=== PATIENT | male | born 1970 | race Caucasian/White ===

== ENCOUNTER 2018-09-15 18:37 | Outpatient (REF) | payer BC, SELFPAY ==
[2018-09-15 22:04] LABS: ALT 47 U/L (12-78); AST 20 U/L (15-37); Albumin 3.6 g/dL (3.4-5.0); Alkaline Phosphatase 88 U/L (46-116); Anion Gap 9.5 mmol/L (3-11); BUN 20 mg/dL (7-18); Bilirubin, Total 0.3 mg/dL (0.2-1.0); CO2 27.5 mmol/L (21.0-32.0); CREATININE 1.26 mg/dL (0.70-1.30); Calcium 9.3 mg/dL (8.5-10.1); Chloride 105 mmol/L (98-107); Cholesterol 117 mg/dL (50-200); Glucose 121 mg/dL (70-100); HDL Cholesterol 28 mg/dL (40-60); LDL CHOLESTEROL 55 mg/dL (<100); Potassium 4.1 mmol/L (3.5-5.1); Sodium 142 mmol/L (136-145); TSH (W/Ref FT4) 2.18 uIU/mL (0.358-3.74); Total Protein 7.1 g/dL (6.4-8.2); Triglyceride 333 mg/dL (30-150)
== END 2018-09-15 18:57 ==
LOC: NCHCN 18:37
PROVIDERS: PCP Family Medicine; Visit Provider Family Medicine
DX: I10 Essential (primary) hypertension (principal); Z82.49 Family history of ischemic heart disease and other diseases of the circulatory system
CPT/HCPCS: 80053; 80061; 83721; 84443

== ENCOUNTER 2019-07-05 21:54 | Outpatient (REF) | payer BC, SELFPAY ==
[2019-07-05 23:25] LABS: COMMENT (LAB VIEW ONLY) 122.04 mg/dL; Microalb ug/mg Crea 7.4 ug/mg Cr
== END 2019-07-05 22:14 ==
LOC: NCHCN 21:54
PROVIDERS: PCP Family Medicine; Visit Provider Nurse Practitioner Family
DX: R73.03 Prediabetes (principal)
CPT/HCPCS: 82043; 82570

== ENCOUNTER 2019-09-28 15:54 | Outpatient (REF) | payer BC, SELFPAY ==
[2019-09-28 21:42] LABS: Anion Gap 10.2 mmol/L (3-11); BUN 15 mg/dL (7-18); CO2 27.8 mmol/L (21.0-32.0); CREATININE 1.05 mg/dL (0.70-1.30); Calcium 9.2 mg/dL (8.5-10.1); Calculated LDL 52 mg/dL (<100); Chloride 102 mmol/L (98-107); Cholesterol 105 mg/dL (<200); Glucose 81 mg/dL (74-106); HDL Cholesterol 27 mg/dL (40-60); Potassium 3.9 mmol/L (3.5-5.1); Sodium 140 mmol/L (136-145); Triglyceride 133 mg/dL (<150)
== END 2019-09-28 16:14 ==
LOC: NCHCN 15:54
PROVIDERS: PCP Family Medicine; Visit Provider Nurse Practitioner Family
DX: R73.03 Prediabetes (principal); R73.9 Hyperglycemia, unspecified; I10 Essential (primary) hypertension
CPT/HCPCS: 80048; 80061

== ENCOUNTER 2020-10-10 18:34 | Outpatient (REF) | payer BC, SELFPAY ==
[2020-10-10 21:06] LABS: COMMENT (LAB VIEW ONLY) 99.25 mg/dL; Microalb ug/mg Crea 8.7 ug/mg Cr
[2020-10-10 21:25] LABS: Anion Gap 8.8 mmol/L (3-11); BUN 17 mg/dL (7-18); CO2 28.2 mmol/L (21.0-32.0); CREATININE 1.2 mg/dL (0.70-1.30); Calcium 9.8 mg/dL (8.5-10.1); Chloride 103 mmol/L (98-107); Glucose 87 mg/dL (74-106); Potassium 4.5 mmol/L (3.5-5.1); Sodium 140 mmol/L (136-145)
== END 2020-10-10 18:35 | disposition home or self-care (01) ==
LOC: NCHCN 18:34
PROVIDERS: PCP Nurse Practitioner Family; Visit Provider Nurse Practitioner Family
DX: I10 Essential (primary) hypertension (principal); R73.03 Prediabetes
CPT/HCPCS: 80048; 82043; 82570

== ENCOUNTER 2020-11-21 13:54 | Emergency (ER) | payer BC, SELFPAY ==
[2020-11-21 14:14] VITALS: BP 142/80; PULSE 105; RESP 22; TEMP 36.3; O2SAT 94
--- NOTE | 2020-11-21 14:15 | DI.US_ITS ---
Exam(s) US LOWER EXTREMITY VENOUS RT EXAM: US LOWER EXTREMITY VENOUS RT CLINICAL HISTORY: R leg pain, r/o dvt TECHNIQUE: Grayscale, color, and doppler imaging of the deep venous system of the right lower extrem ity was performed. COMPARISON: No exams were available for comparison FINDINGS: There is no evidence of intraluminal thrombus and there is normal compression and augmentation demons trated within the common femoral vein, femoral vein, and popliteal vein. In the ipsilateral calf the interrogated veins also exhibit normal compression/ augmentation properti es. The ipsilateral saphenofemoral junction is patent. IMPRESSION: 1. No evidence of DVT in the right lower extremity. DATA REPOSITORY:
--- NOTE | 2020-11-21 14:23 | ED.GENADUL_ITS ---
Discharge Plan Disposition Patient Disposition: HOME Condition: Stable Discharge Details Clinical Impression: Cellulitis of right leg Primary Care Provider: Bertha Dudley ED Provider: Andie Coles Home Meds and New Rx's Prescriptions: New cephalexin 500 mg capsule 500 mg PO QID 7 Days Qty: 28 RF: 0 Continued metformin 500 mg Tablet 500 mg PO DAILY RF: 0 atorvastatin 20 mg Tablet 20 mg PO QPM RF: 0 lisinopril-hydrochlorothiazide 20-12.5 mg Tablet 1 tab PO BID RF: 0 Discharge Instructions Instructions: Cellulitis (ED) Additional Instructions: Keep your right leg elevated as much as possible to help with swelling and improve blood flow. Your prescription has been sent electronically to your pharmacy. Call the pharmacy to make sure your prescription is ready before pickup. Take the prescription as directed. Follow-up with your primary care doctor in 1 week for reevaluation of your right leg redness and pain which I suspect is due to a superficial skin infection Return to the emergency department with any worsening or new concerning symptoms such as fever, worsening redness, pain or swelling. Discharge Data Discharge Physician: Andie Coles Medical Decision Making 50-year-old male with a history of diabetes, hypertension and obesity presents with right leg pain for the past week after falling through a wooden deck. Right anterior lower leg notes a 4 x 4 centimeter area of erythema, tenderness and area feels hot to touch. Appears likely more consistent with a developing cellulitis rather than concern for fracture. There is no bony deformity. He is neurovascularly intact. There is no abscess. There is no right calf tenderness. Considering patient's age and history, will obtain right tib-fib x-ray and right leg ultrasound. Right leg ultrasound the right tib-fib x-ray negative. Skin markings placed around edges of erythema. Patient was given a dose of Keflex here and prescription sent electronically to his pharmacy. Advised to follow up with the primary care doctor for re-evaluation. Usual and customary return precautions given prior to discharge. Medical Records Medical records reviewed: Yes I reviewed the patient's medical records. HPI General Mode of arrival: ambulatory . Date/Time Provider Initiated Documentation: 11/21/20 14:01 . Limitations to Documentation: no limitations . Information obtained by: patient . HPI Narrative: Patient is a 50-year-old male with a history of diabetes hypertension presents with right leg pain for the past week after fell through a wooden deck. He states he has had continued pain since then is concerned about possible fracture. He denies any known fever. He is complaining of pain only in his lower leg and denies any ankle, knee or hip pain Related Data Home Medications Medication Instructions Recorded Confirmed atorvastatin 20 mg PO QPM 11/21/20 11/21/20 cephalexin 500 mg PO QID 7 Days #28 cap 11/21/20 lisinopril-hydrochlorothiazide 1 tab PO BID 11/21/20 11/21/20 metformin 500 mg PO DAILY 11/21/20 11/21/20 Previous Rx's Medication Instructions Recorded cephalexin 500 mg PO QID 7 Days #28 cap 11/21/20 Allergies Allergy/AdvReac Type Severity Reaction Status Date / Time No Known Allergies Allergy Unverified 11/21/20 14:16 General Stated Complaint: Orthopedic PACHECO: 4 Review of Systems All systems reviewed & are unremarkable except as noted in HPI and below Constitutional Constitutional: Reports as per HPI, Denies chills and Denies fever(s) Eyes Eyes: Denies blurry vision ENT Ears, Nose, Mouth, and Throat: Denies dizziness, Denies sore throat and Denies t hroat swelling Cardiovascular Cardiovascular: Denies chest pain and Denies dyspnea Respiratory Respiratory: Denies cough and Denies dyspnea Gastrointestinal Gastrointestinal: Denies abdominal pain, Denies diarrhea and Denies vomiting Genitourinary Genitourinary: Denies hematuria and Denies dysuria Musculoskeletal Musculoskeletal: Denies back pain and Denies numbness Comments: Right leg pain Integumentary/Breasts Skin/Breast: Denies lesions and Denies rash Neurologic Neurologic: Denies dizziness, Denies localized weakness and Denies numbness Allergic/Immunologic Allergic/Immunologic: Denies throat swelling [facility] Medical History (Updated 11/21/20 @ 15:45 by Andie Coles DO) Diabetes HTN (hypertension) Social History Smoking/Tobacco Use Status: Never Smoking risk assessment performed?: Yes Alcohol Intake: never Drug use: Never Substance use type: does not use Do you feel safe at home: Yes Do you feel safe in your relationship?: Yes Exam Const General: cooperative, healthy appearing and no acute distress HENMT Head: normal to inspection Mouth: oral mucosae normal Eyes General: appearance normal, both eyes and all related structures Neck Neck: normal visual inspection Resp Effort & Inspection: normal respiratory effort and able to speak in complete sentences Cardio Rate: regular rate Skin General skin exam: no rashes or lesions noted Neuro General: patient alert, patient awake and patient oriented x3 Motor: muscle tone normal throughout Extrem Upper/lower leg/hip images: 1. Approximate 4 x 4 centimeter area of tender erythema noted to right anterior distal leg. There is no fluctuance, induration, crepitus, lesions, or ecchymosis. Other: Right DP/PT pulses intact. Right knee, ankle and foot normal to inspec tion without pain or tenderness. Psych Appearance: grossly normal Affect: normal affect Course Vital Signs Vital signs: Vital Signs Temperature 97.3 F L 11/21/20 14:14 Pulse 105 H 11/21/20 14:14 Respiratory Rate 11/21/20 14:14 Blood Pressure 142/80 H 11/21/20 14:14 Pulse Oximetry 94 11/21/20 14:14 Temperature 97.3 F L 11/21/20 14:14 Temperature Source Skin 11/21/20 14:14 Pulse 105 H 11/21/20 14:14 Respiratory Rate 22 11/21/20 14:14 Respiratory Effort Non-Labored 11/21/20 14:17 Blood Pressure 142/80 H 11/21/20 14:14 Blood Pressure Position Sitting 11/21/20 14:14 Pulse Oximetry 94 11/21/20 14:14 Oxygen Delivery Method Room Air 11/21/20 14:14 Oxygen Flow Rate 0 11/21/20 14:14 Pain Level 1 11/21/20 14:14
--- NOTE | 2020-11-21 14:44 | DI.RAD_ITS ---
Exam(s) XR TIB/FIB RT EXAM: XR TIB/FIB RT CLINICAL HISTORY: s/p fall through deck, r/o fx. TECHNIQUE: 2D digital imaging was performed. COMPARISON: No exams were available for comparison FINDINGS: There is no evidence of acute fracture nor dislocation. No radiopaque foreign body. No osseous lesi ons. IMPRESSION: No fracture evident. DATA REPOSITORY: RADIATION DOSE DELIVERED:
[2020-11-21] MEDS: Cephalexin 500 MG CAP PO (15:48)
== END 2020-11-21 15:53 | disposition home or self-care (01) ==
PROVIDERS: Emergency Provider Physician Assistant; PCP Nurse Practitioner Family
DX: L03.115 Cellulitis of right lower limb (principal); L53.8 Other specified erythematous conditions; W13.3XXA Fall through floor, initial encounter
CPT/HCPCS: 99284; 73590; 93971; 99285

== ENCOUNTER 2021-11-06 14:50 | Outpatient (REF) | payer OTHER, SELFPAY ==
[2021-11-06 18:06] LABS: Anion Gap 8.1 mmol/L (3-11); BUN 15 mg/dL (7-18); CO2 29.9 mmol/L (21.0-32.0); CREATININE 1.1 mg/dL (0.70-1.30); Calcium 9.5 mg/dL (8.5-10.1); Chloride 101 mmol/L (98-107); Glucose 120 mg/dL (74-106); Sodium 139 mmol/L (136-145)
[2021-11-06 18:10] LABS: Hemoglobin A1C 6.4 % (<5.7)
[2021-11-06 19:55] LABS: COMMENT (LAB VIEW ONLY) 50.55 mg/dL; Microalb ug/mg Crea 17.6 ug/mg Cr
== END 2021-11-06 14:51 | disposition home or self-care (01) ==
LOC: NCHCN 14:50
PROVIDERS: PCP Nurse Practitioner Family; Visit Provider Nurse Practitioner Family
DX: R73.03 Prediabetes (principal); I10 Essential (primary) hypertension; E66.9 Obesity, unspecified; Z68.41 Body mass index [BMI] 40.0-44.9, adult
CPT/HCPCS: 80048; 82043; 82570; 83036

== ENCOUNTER 2022-09-17 11:00 | Outpatient (REF) | payer BC, SELFPAY ==
[2022-09-17 14:54] LABS: COMMENT (LAB VIEW ONLY) 59.65 mg/dL; Microalb ug/mg Crea 5.2 ug/mg Cr
[2022-09-17 14:55] LABS: Anion Gap 10.3 mmol/L (3-11); BUN 25 mg/dL (7-18); CO2 26.7 mmol/L (21.0-32.0); CREATININE 1.1 mg/dL (0.70-1.30); Calcium 9.8 mg/dL (8.5-10.1); Calculated LDL 33 mg/dL (<100); Chloride 103 mmol/L (98-107); Cholesterol 90 mg/dL (<200); Estimated GFR 82.29 (mL/min/1.73m2); Glucose 98 mg/dL (74-106); HDL Cholesterol 32 mg/dL (40-60); Potassium 4.2 mmol/L (3.5-5.1); Sodium 140 mmol/L (136-145); Triglyceride 126 mg/dL (<150)
== END 2022-09-17 11:01 | disposition home or self-care (01) ==
LOC: NCHCN 11:00
PROVIDERS: PCP Nurse Practitioner Family; Visit Provider Nurse Practitioner Family
DX: E11.9 Type 2 diabetes mellitus without complications (principal); E78.5 Hyperlipidemia, unspecified
CPT/HCPCS: 80048; 80061; 82043; 82570

== ENCOUNTER 2023-08-12 10:36 | Outpatient (REF) | payer BC, SELFPAY ==
[2023-08-12 14:32] LABS: Hemoglobin A1C 5.6 % (<5.7)
[2023-08-12 14:34] LABS: Anion Gap 6.2 mmol/L (3-11); BUN 26 mg/dL (7-18); CO2 28.8 mmol/L (21.0-32.0); Calcium 9.5 mg/dL (8.5-10.1); Calculated LDL 64 mg/dL (<100); Chloride 104 mmol/L (98-107); Cholesterol 122 mg/dL (<200); Estimated GFR 91.69 (mL/min/1.73m2); Glucose 93 mg/dL (74-106); HDL Cholesterol 41 mg/dL (40-60); Potassium 4.1 mmol/L (3.5-5.1); Sodium 139 mmol/L (136-145); Triglyceride 89 mg/dL (<150)
== END 2023-08-12 10:37 | disposition home or self-care (01) ==
LOC: NCHCN 10:36
PROVIDERS: PCP Nurse Practitioner Family; Visit Provider Nurse Practitioner Family
DX: E11.9 Type 2 diabetes mellitus without complications (principal); E78.5 Hyperlipidemia, unspecified
CPT/HCPCS: 80048; 80061; 83036

== ENCOUNTER 2023-08-19 10:14 | Outpatient (REF) | payer BC, SELFPAY ==
[2023-08-19 16:16] LABS: COMMENT (LAB VIEW ONLY) 126.04 mg/dL; Microalb ug/mg Crea 7.8 ug/mg Cr
== END 2023-08-19 10:15 | disposition home or self-care (01) ==
LOC: NCHCN 10:14
PROVIDERS: PCP Nurse Practitioner Family; Visit Provider Nurse Practitioner Family
DX: E11.9 Type 2 diabetes mellitus without complications (principal)
CPT/HCPCS: 82043; 82570

== ENCOUNTER 2024-06-15 13:06 | Outpatient (REF) | payer BC, SELFPAY ==
[2024-06-15 15:02] LABS: HCT 44.3 % (40.0-50.0); HGB 15.1 g/dL (13.5-17.5); MCH 30.5 pg (27.0-33.0); MCHC 34.1 % (32.0-36.0); MCV 90 fL (80-95); Platelet Count 244 10^3/uL (130-400); RBC 4.95 10^6/uL (4.36-5.78); RDW 12.3 % (11.8-14.1); RDW-SD 40.1 fL; WBC 6.54 10^3/uL (4.4-10.8)
[2024-06-15 15:41] LABS: ALT 40 U/L (16-63); AST 21 U/L (15-37); Albumin 3.9 g/dL (3.4-5.0); Alkaline Phosphatase 96 U/L (46-116); Anion Gap 8.8 mmol/L (3-11); BUN 18 mg/dL (7-18); Bilirubin, Total 0.58 mg/dL (0.2-1.0); CO2 28.2 mmol/L (21.0-32.0); CREATININE 1.1 mg/dL (0.70-1.30); Calcium 9.1 mg/dL (8.5-10.1); Calculated LDL 98 mg/dL (<100); Chloride 105 mmol/L (98-107); Cholesterol 181 mg/dL (<200); Estimated GFR 81.28 (mL/min/1.73m2); Glucose 85 mg/dL (74-106); HDL Cholesterol 41 mg/dL (40-60); Potassium 3.9 mmol/L (3.5-5.1); Sodium 142 mmol/L (136-145); Total Protein 7.6 g/dL (6.4-8.2); Triglyceride 214 mg/dL (<150); Vitamin B12 537 pg/mL (193-986)
[2024-06-15 16:17] LABS: COMMENT (LAB VIEW ONLY) 49.67 mg/dL; Microalb ug/mg Crea 16.7 ug/mg Cr
== END 2024-06-15 13:07 | disposition home or self-care (01) ==
LOC: NCHCN 13:06
PROVIDERS: PCP Nurse Practitioner Family; Visit Provider Nurse Practitioner Family
DX: E11.9 Type 2 diabetes mellitus without complications (principal); Z51.81 Encounter for therapeutic drug level monitoring
CPT/HCPCS: 80053; 80061; 85027; 82043; 82570; 82607

== ENCOUNTER 2025-01-30 15:42 | Outpatient (REF) | payer BC, SELFPAY ==
[2025-01-30 16:40] LABS: Anion Gap 8.4 mmol/L (3-11); BUN 21 mg/dL (7-18); CO2 26.6 mmol/L (21.0-32.0); Calcium 9.5 mg/dL (8.5-10.1); Chloride 103 mmol/L (98-107); Estimated GFR 90.56 (mL/min/1.73m2); Glucose 103 mg/dL (74-106); Potassium 4.0 mmol/L (3.5-5.1); Sodium 138 mmol/L (136-145)
== END 2025-01-30 15:43 | disposition home or self-care (01) ==
LOC: NCHCN 15:42
PROVIDERS: PCP Nurse Practitioner Family; Visit Provider Nurse Practitioner Family
DX: I10 Essential (primary) hypertension (principal)
CPT/HCPCS: 80048

== ENCOUNTER 2025-02-21 14:09 | Outpatient (REF) | payer BC, SELFPAY ==
[2025-02-21 20:53] LABS: Abs Immature Grans 0.05 10^3/uL (0.0-0.06); HCT 44.1 % (40.0-50.0); HGB 15.2 g/dL (13.5-17.5); Immature Grans % 0.4 %; MCH 30.6 pg (27.0-33.0); MCHC 34.5 % (32.0-36.0); MCV 89 fL (80-95); MPV 10.4 fL (8.0-11.0); Platelet Count 248 10^3/uL (130-400); RBC 4.96 10^6/uL (4.36-5.78); RDW 12.5 % (11.8-14.1); RDW-SD 41.0 fL; WBC 12.06 10^3/uL (4.4-10.8)
[2025-02-21 21:19] LABS: ALT 36 U/L (16-63); AST 27 U/L (15-37); Albumin 4.2 g/dL (3.4-5.0); Alkaline Phosphatase 110 U/L (46-116); Anion Gap 9.7 mmol/L (3-11); BUN 25 mg/dL (7-18); Bilirubin, Total 0.7 mg/dL (0.2-1.0); C-Reactive Protein 5.12 mg/dL (<or=0.5); CO2 29.3 mmol/L (21.0-32.0); Calcium 9.5 mg/dL (8.5-10.1); Chloride 99 mmol/L (98-107); Estimated GFR 80.77 (mL/min/1.73m2); Glucose 81 mg/dL (74-106); Potassium 3.9 mmol/L (3.5-5.1); Sodium 138 mmol/L (136-145); Total Protein 8.1 g/dL (6.4-8.2)
== END 2025-02-21 14:10 | disposition home or self-care (01) ==
LOC: NCHCN 14:09
PROVIDERS: PCP Nurse Practitioner Family; Visit Provider Internal Medicine
DX: R10.32 Left lower quadrant pain (principal)
CPT/HCPCS: 80053; 85025; 86140

== ENCOUNTER 2025-04-26 10:34 | Day surgery (SDC) | payer BC, SELFPAY ==
[2025-04-26 11:06] VITALS: BP 140/86; PULSE 74; RESP 16; TEMP 36.3; O2SAT 97
[2025-04-26] MEDS: Lactated Ringers 1,000 ML 80 ML IV (11:22)
--- NOTE | 2025-04-26 11:30 | W.ANESPRE ---
General Info Date of Service Date Performed: 04/26/25 Height: 5 ft 11 in Weight: 131.7 kg Body Mass Index (BMI): 40.4 Surgical Procedure: Operation Date: 04/26/25 12:05 Proposed Procedure Side Surgeon tracy Stern MD Meds Allergies and Home Medications Allergies Allergy/AdvReac Type Severity Reaction Status Date / Time No Known Allergies Allergy Verified 04/26/25 11:03 Home Medication ?Medication ?Instructions ?Recorded atorvastatin 20 mg tablet 20 mg PO QPM 11/21/20 lisinopril 20 1 tab PO BID 11/21/20 mg-hydrochlorothiazide 12.5 mg tablet fluticasone propionate 50 2 spray intranasal DAILY 02/26/25 mcg/actuation nasal spray,suspension liraglutide 0.6 mg/0.1 mL (18 mg/3 1.8 mg subcut DAILY 02/26/25 mL) subcutaneous pen injector ([employer] 2-Micheal) bisacodyl 5 mg tablet,delayed 5 mg PO ONCE #4 tabs 03/16/25 release (Dulcolax (bisacodyl)) metformin 500 mg tablet 500 mg PO BID 03/16/25 polyethylene glycol 3350 17 17 g PO ONCE #238 grams 03/16/25 gram/dose oral powder Current Visit Medications: Current Medications Generic Name Dose Route Start Last Admin Trade Name Freq PRN Reason Stop Dose Admin Ringer's Solution 1,000 mls @ 80 mls/hr 04/26/25 06:00 04/26/25 11:22 IV 04/26/25 23:59 80 mls/hr INFUSION GABRIEL Administration IV Miscellaneous Supplies 1 each 04/26/25 06:00 Iv Access IV 04/26/25 23:59 DIRECTED GABRIEL Sodium Biphosphate/Sodium Phosphate 133 - 266 ml 04/26/25 06:00 Na Phosphate Enema-Adult 133 Ml Btl [place] 04/26/25 23:59 DIRECTED PRN Sodium Chloride 0 ml 04/26/25 06:00 Normal Saline Flush 10 Ml Syr IV 04/26/25 23:59 PRN PRN Sodium Chloride 0 ml 04/26/25 06:00 Normal Saline 10 Ml Vial IJ 04/26/25 23:59 DIRECTED PRN Sterile Water 0 ml 04/26/25 06:00 Water,Injection,Sterile 10 Ml Vial IJ 04/26/25 23:59 DIRECTED PRN PFS Active Problems Active Problems: Problem Status Onset Code Diverticulitis Chronic K57.92 RAPHAEL (obstructive sleep apnea) Chronic G47.33 Cellulitis of right leg Acute L03.115 Medical History Medical History Gout HTN (hypertension) Diabetes Surgical History Surgical History Hx of wisdom tooth extraction Tobacco Smoking/Tobacco Use Status: Former Tobacco Use Passive smoking exposure: No Alcohol Alcohol Intake: never Substance Use Substance use: Never Substance use type: does not use Vital Signs and Lab Results Vital Signs Most Recent Vital Signs in EMR: Most Recent Vital Signs Temp Pulse Resp BP Pulse Ox 36.3 C L 74 16 140/86 97 04/26/25 11:06 04/26/25 11:06 04/26/25 11:06 04/26/25 11:06 04/26/25 11:06 Point of Care Results Point of Care Results: Finger Stick Blood Glucose 96 04/26/25 10:52 Anesthesia Assessment and Plan Anesthesia History Personal History: No History of Anesthesia Complications Family History: No Family History of Anesthesia Complications Implantable Cardiac Device Does patient have a Pacemaker or an ICD?: No
--- NOTE | 2025-04-26 11:41 | W.ANESPRE ---
General Info Date of Service Date Performed: 04/26/25 Height: 5 ft 11 in Weight: 131.7 kg Body Mass Index (BMI): 40.4 Surgical Procedure: Operation Date: 04/26/25 12:05 Proposed Procedure Side Surgeon tracy Stern MD Meds Allergies and Home Medications Allergies Allergy/AdvReac Type Severity Reaction Status Date / Time No Known Allergies Allergy Verified 04/26/25 11:03 Home Medication ?Medication ?Instructions ?Recorded atorvastatin 20 mg tablet 20 mg PO QPM 11/21/20 lisinopril 20 1 tab PO BID 11/21/20 mg-hydrochlorothiazide 12.5 mg tablet fluticasone propionate 50 2 spray intranasal DAILY 02/26/25 mcg/actuation nasal spray,suspension liraglutide 0.6 mg/0.1 mL (18 mg/3 1.8 mg subcut DAILY 02/26/25 mL) subcutaneous pen injector ([employer] 2-Micheal) bisacodyl 5 mg tablet,delayed 5 mg PO ONCE #4 tabs 03/16/25 release (Dulcolax (bisacodyl)) metformin 500 mg tablet 500 mg PO BID 03/16/25 polyethylene glycol 3350 17 17 g PO ONCE #238 grams 03/16/25 gram/dose oral powder Current Visit Medications: Current Medications Generic Name Dose Route Start Last Admin Trade Name Freq PRN Reason Stop Dose Admin Ringer's Solution 1,000 mls @ 80 mls/hr 04/26/25 06:00 04/26/25 11:22 IV 04/26/25 23:59 80 mls/hr INFUSION GABRIEL Administration IV Miscellaneous Supplies 1 each 04/26/25 06:00 Iv Access IV 04/26/25 23:59 DIRECTED GABRIEL Sodium Biphosphate/Sodium Phosphate 133 - 266 ml 04/26/25 06:00 Na Phosphate Enema-Adult 133 Ml Btl [place] 04/26/25 23:59 DIRECTED PRN Sodium Chloride 0 ml 04/26/25 06:00 Normal Saline Flush 10 Ml Syr IV 04/26/25 23:59 PRN PRN Sodium Chloride 0 ml 04/26/25 06:00 Normal Saline 10 Ml Vial IJ 04/26/25 23:59 DIRECTED PRN Sterile Water 0 ml 04/26/25 06:00 Water,Injection,Sterile 10 Ml Vial IJ 04/26/25 23:59 DIRECTED PRN PFS Active Problems Active Problems: Problem Status Onset Code Diverticulitis Chronic K57.92 RAPHAEL (obstructive sleep apnea) Chronic G47.33 Cellulitis of right leg Acute L03.115 Medical History Medical History (Updated 04/26/25 @ 11:43 by Rosi Stern MD) Gout HTN (hypertension) Diabetes Surgical History Surgical History Hx of wisdom tooth extraction Tobacco Smoking/Tobacco Use Status: Never Passive smoking exposure: No Alcohol Alcohol Intake: never Substance Use Substance use: Never Substance use type: does not use Vital Signs and Lab Results Vital Signs Most Recent Vital Signs in EMR: Most Recent Vital Signs Temp Pulse Resp BP Pulse Ox 36.3 C L 74 16 140/86 97 04/26/25 11:06 04/26/25 11:06 04/26/25 11:06 04/26/25 11:06 04/26/25 11:06 Point of Care Results Point of Care Results: Finger Stick Blood Glucose 96 04/26/25 10:52 Anesthesia Assessment and Plan Anesthesia History Personal History: No History of Anesthesia Complications Family History: No Family History of Anesthesia Complications Exercise Tolerance Exercise Tolerance: Metabolic Equivalents>4 Pertinent Negatives Pertinent Negatives: No Symptoms of GERD, No Major Cardiovascular Symptoms or Complaints and No Major Pulmonary Symptoms or Complaints Cardiac & Pulmonary Exam Cardiac Exam: Normal S1/S2 Heart Sounds Pulmonary Exam: Clear Bilateral Breath Sounds Implantable Cardiac Device Does patient have a Pacemaker or an ICD?: No Airway Exam Known Difficult Airway: No Mallampati Class: 1 Mouth Opening: Normal (> 3cm) Thyromental Distance: Greater than 3 cm Facial Hair: Full Kim Neck Range of Motion: Full ROM Neck Circumference: Normal Teeth Condition: Normal Dentition ASA Classification ASA Score: ASA 2 Emergency Case?: No NPO Status NPO Status: NPO Clears >2 hours, Solids >8 hours Anesthesia Plan Resuscitation Status: Full Code Anesthesia Technique: General Anesthesia Airway Planned: Natural Airway Monitors Used: Standard Monitors Preoperative Comments:: Last Victoza dose Wednesday
--- NOTE | 2025-04-26 11:42 | W.PM.HP.N ---
Date of service: 04/26/25 Time of Service: 11:42 Assessment and Plan Assessment and plan (1) History of diverticulitis: Status: Acute Assessment and plan: Recent history of diverticulitis. Colonoscopy is indicated to assess the area and ensure there are no changes beyond diverticular changes. The procedure was discussed at length with the patient and the risks benefits alternatives and expectations were reviewed. The informed consent was obtained at the office visit and he has no questions today. Proceed with colonoscopy History of Present Illness Narrative: 54 year-old male who presents for colonoscopy due to recent history of diverticulitis. This was his first flare of diverticulitis. He had a self-limited episode that resolved without antibiotics but was demonstrated on CAT scan. He had not had colonoscopy. He has not had any flareups or incidents since he was last seen in the office on March 16. His colonoscopy prep went well and he is prepared for the procedure. PFSH All Active Problems (Updated 04/26/25 @ 11:43 by Rosi Stern MD) History of diverticulitis (Acute) Diverticulitis (Chronic) RAPHAEL (obstructive sleep apnea) (Chronic) Cellulitis of right leg (Acute) Medical History Gout HTN (hypertension) Diabetes Surgical History Hx of wisdom tooth extraction Social History Smoking/Tobacco Use Status: Never Smoking risk assessment performed?: Yes Alcohol Intake: never Drug use: Never Substance use type: does not use Housing: house Do you feel safe at home: Yes Do you feel safe in your relationship?: Yes Additional Social history: [facility] Meds Allergies and Home Medications Allergies Allergy/AdvReac Type Severity Reaction Status Date / Time No Known Allergies Allergy Verified 04/26/25 11:03 Home Medications ?Medication ?Instructions ?Recorded ?Confirmed ?Type atorvastatin 20 mg tablet 20 mg PO QPM 11/21/20 04/26/25 History lisinopril 20 1 tab PO BID 11/21/20 04/26/25 History mg-hydrochlorothiazide 12.5 mg tablet fluticasone propionate 50 2 spray intranasal DAILY 02/26/25 04/26/25 History mcg/actuation nasal spray,suspension liraglutide 0.6 mg/0.1 mL (18 mg/3 1.8 mg subcut DAILY 02/26/25 04/26/25 History mL) subcutaneous pen injector (Victoza 2-Micheal) bisacodyl 5 mg tablet,delayed 5 mg PO ONCE #4 tabs 03/16/25 04/26/25 Rx release (Dulcolax (bisacodyl)) metformin 500 mg tablet 500 mg PO BID 03/16/25 04/26/25 History polyethylene glycol 3350 17 17 g PO ONCE #238 grams 03/16/25 04/26/25 Rx gram/dose oral powder Exam Narrative Exam Narrative: awake, NAD eomi, MMM midline trachea, neck is symmetric PULM: normal resp effort, equal chest rise with respiration, no wheezing audible CARDIAC: normal PMI, no jvd, regular rate, normal perfusion abdomen is nondistended. extremities are without deformity, normal movement of all four extremities speech is clear and coherent mood and affect are congruent, no focal neurological deficits skin without rash Results Last Vital Signs Temp 97.3 F L 04/26/25 11:06 Pulse 74 04/26/25 11:06 Resp 16 04/26/25 11:06 BP 140/86 04/26/25 11:06 Pulse Ox 97 04/26/25 11:06 Time Spent Time spent with Patient: <40 minutes Time was spent: preparing to see the patient(eg.review tests) and counseling the patient
[2025-04-26 11:43] VITALS: BMI 40.4
--- NOTE | 2025-04-26 11:44 | W.PM.DSUDISC ---
Date of service: 04/26/25 Discharge Plan Disposition Patient Disposition: Home Condition: Stable Discharge Details Attending Provider: Rosi Stern Primary Care Provider: Bertha Dudley Home Meds and New Rx's Prescriptions: Continued fluticasone propionate 50 mcg/actuation spray,suspension 2 spray intranasal DAILY Rx Instructions: administer into each nostril liraglutide [Victoza 2-Micheal] 0.6 mg/0.1 mL (18 mg/3 mL) pen injector 1.8 mg subcut DAILY atorvastatin 20 mg Tablet 20 mg PO QPM lisinopril-hydrochlorothiazide 20-12.5 mg Tablet 1 tab PO BID metformin 500 mg tablet 500 mg PO BID Discontinued bisacodyl [Dulcolax (bisacodyl)] 5 mg tablet,delayed release (DR/EC) 5 mg PO ONCE Qty: 4 0RF Rx Instructions: Take per colonoscopy instructions provided by ordering providers office polyethylene glycol 3350 17 gram/dose powder 17 g PO ONCE Qty: 238 0RF Rx Instructions: Take per colonoscopy instructions provided by ordering providers office Discharge Instructions Additional Instructions: Colonoscopy today shows a healthy colon and rectum. No polyps or growths, no inflammatory conditions or disease. You have diverticulosis where we expected to see it. Diverticulosis of the sigmoid colon noted, no diverticulitis (infection) present. Take a daily fiber supplement and eat a high fiber diet to prevent problems and progression of diverticulosis. Stand Alone Forms: Anesthesia Discharge Inst., Colonoscopy Post Instructions, Joy Dean (DSU) Activity:: Activity as Tolerated Diet:: As Tolerated DS: Diagnosis Discharge Diagnosis (1) History of diverticulitis: Status: Acute (2) Diverticulosis of sigmoid colon: Status: Acute
--- NOTE | 2025-04-26 11:46 | COLE_ITS ---
Date of service: 04/26/25 Time of Service: 12:11 Colonoscopy Report Pre-op diagnosis general: History of diverticulitis Post-op diagnosis procedure note: same (Diverticulosis of sigmoid colon) Procedure: Colonoscopy Surgeon: Rosi Stern Anesthesia Type: General:No Airway Estimated blood loss (mL): 0 Pathology: none sent Complications: None Prep: Miralax/Dulcolax (good) Procedure Description: Informed consent was obtained and the patient was taken to the procedure area. The patient was placed in left lateral decubitus position on the procedure table. Timeout was performed. Anesthesia was induced. A lubricated colonoscope was inserted through the anus and passed to the cecum. The cecum was identified by the ileocecal valve and the appendiceal orifice. The scope was then slowly withdrawn and the colonic and rectal mucosa examined.The scope was retroflexed in the anorectal junction examined. No mass lesion, poyp, inflammatory change, or AVM seen. Sigmoid diverticulosis noted, small and large mouthed, moderate in degreee. No e vidence of diverticulitis. Grade 2 internal hemorrhoids without complication. Assessment and plan: History of diverticulitis Diverticulosis of sigmoid colon Normal colonoscopy other than the diverticulosis. Average risk patient. Next screening colonoscopy will be due in 10 years. High fiber diet and/or daily powdered fiber supplement recommended for diverticulosis.
--- NOTE | 2025-04-26 12:12 | W.PM.DSUDISC ---
Date of service: 04/26/25 Discharge Plan Disposition Patient Disposition: Home Condition: Stable Discharge Details Attending Provider: Rosi Stern Primary Care Provider: Bertha Dudley Home Meds and New Rx's Prescriptions: Continued fluticasone propionate 50 mcg/actuation spray,suspension 2 spray intranasal DAILY Rx Instructions: administer into each nostril liraglutide [Victoza 2-Micheal] 0.6 mg/0.1 mL (18 mg/3 mL) pen injector 1.8 mg subcut DAILY atorvastatin 20 mg Tablet 20 mg PO QPM lisinopril-hydrochlorothiazide 20-12.5 mg Tablet 1 tab PO BID metformin 500 mg tablet 500 mg PO BID Discontinued bisacodyl [Dulcolax (bisacodyl)] 5 mg tablet,delayed release (DR/EC) 5 mg PO ONCE Qty: 4 0RF Rx Instructions: Take per colonoscopy instructions provided by ordering providers office polyethylene glycol 3350 17 gram/dose powder 17 g PO ONCE Qty: 238 0RF Rx Instructions: Take per colonoscopy instructions provided by ordering providers office Discharge Instructions Additional Instructions: Colonoscopy today shows a healthy colon and rectum. No polyps or growths, no inflammatory conditions or disease. You have diverticulosis where we expected to see it. Diverticulosis of the sigmoid colon noted, no diverticulitis (infection) present. Take a daily fiber supplement and eat a high fiber diet to prevent problems and progression of diverticulosis. Your next colonoscopy will be due in 10 years as a screening exam Stand Alone Forms: Anesthesia Discharge Inst., Colonoscopy Post Instructions, Joy Dean (DSU) Activity:: Activity as Tolerated Diet:: As Tolerated DS: Diagnosis Discharge Diagnosis (1) History of diverticulitis: Status: Acute (2) Diverticulosis of sigmoid colon: Status: Acute
[2025-04-26 12:17] VITALS: BP 123/79; PULSE 85; RESP 18; TEMP 36.1; O2SAT 92
--- NOTE | 2025-04-26 12:27 | W.ANESPOSTOP ---
Postoperative Evaluation Date, Time and Location Date Performed: 04/26/25 Time Performed: 12:27 Patient Location: Day Surgery Unit Vital Signs Most Recent Imported Vital Signs: Most Recent Vital Signs Temp Pulse Resp BP Pulse Ox 36.1 C L 85 18 123/79 92 04/26/25 12:17 04/26/25 12:17 04/26/25 12:17 04/26/25 12:17 04/26/25 12:17 Pain Score Most Recent Pain Score: Most Recent Pain Score Pain Level 0 04/26/25 12:17 Assessment Mental Status: Awake (Alert & Oriented to Patient Baseline) Airway and Respiratory Function: Patent airway with normal (patient baseline) respiratory exam Cardiovascular Function: Hemodynamically Stable Hydration Status: Adequately Hydrated Nausea & Vomiting: No Nausea or Vomiting Pain: Pt. Denies Any Pain Peripheral Nerve Block: Patient did not receive a nerve block
[2025-04-26 12:52] VITALS: BP 123/86; PULSE 76; RESP 14; TEMP 36.3; O2SAT 95
== END 2025-04-26 13:11 | disposition home or self-care (01) ==
LOC: SUR 10:35
PROVIDERS: PCP Nurse Practitioner Family; Visit Provider Surgery
PROC: 0DJD8ZZ Inspection of Lower Intestinal Tract, Via Natural or Artificial Opening Endoscopic (ICD-10-PCS; CPT 45378; principal; 2025-04-26 12:00)
DX: K57.30 Diverticulosis of large intestine without perforation or abscess without bleeding (principal); K64.8 Other hemorrhoids
CPT/HCPCS: 45378; J2704